=== PATIENT | female | born 1995 | race Two or more races ===

== ENCOUNTER 2018-07-05 19:39 | Emergency (ER) | payer SELFPAY ==
[~2018-07-05] VITALS: Ht 165.1 cm; Wt 53.1 kg
[2018-07-05 20:22] LABS: CLARITY URINE CLEAR (CLEAR); COLOR URINE YELLOW (YELLOW); KETONES URINE NEGATIVE (NEGATIVE); LEUKOCYTE ESTERASE URINE NEGATIVE (NEGATIVE); NITRITE URINE NEGATIVE (NEGATIVE); OCCULT BLOOD URINE NEGATIVE (NEGATIVE); PH URINE 7.5 (4.5-8.0); PROTEIN URINE NEGATIVE (NEGATIVE); SPECIFIC GRAVITY URINE 1.019 (1.005-1.030); UROBILINOGEN URINE 0.2 E.U./dL (0.2-1.0)
[2018-07-05] MEDS ORDERED: METRONIDAZOLE 500MG TABLET PO ONE (23:30)
[2018-07-06 00:25] VITALS: BP 114/73
== END 2018-07-06 00:30 | disposition home or self-care (01) ==
LOC: ER 19:39
DX: N89.8 Other specified noninflammatory disorders of vagina (principal); F17.200 Nicotine dependence, unspecified, uncomplicated; Z86.19 Personal history of other infectious and parasitic diseases
CPT/HCPCS: 81003; 81025; 99283; Z7610